=== PATIENT | male | born 1945 | race Caucasian/White ===

== ENCOUNTER 2018-07-04 22:16 | Emergency (ER) | payer MEDICARE ==
[~2018-07-04] VITALS: Ht 180.3 cm; Wt 113.4 kg
[~2018-07-04 22:16] MED LIST: ALPR0.5T6 PO; DULO60CA6 PO; HYDR-2761 PO; LOSA100T14 PO; NIAC50TA3 PO; OMEG300C PO; TEST1.25 TD; TRAZ150T49 PO; UBID10CA5 PO; WARF-31 PO
[2018-07-04] MEDS ORDERED: IV NORMAL SALINE 1000ML BAG 1,000 ML IV ONE (23:45)
[2018-07-04 23:47] LABS: BASO # 0.1 x10^3/uL (0.0-0.2); BASO % 1 % (0-3); EOS # 0.2 x10^3/uL (0.0-0.7); EOS % 3 % (0-3); HEMATOCRIT 43.9 % (39.0-53.0); HEMOGLOBIN 14.5 g/dL (13.0-17.5); LYMPH # 1.9 x10^3/uL (1.0-4.8); LYMPH % 31 % (24-48); MEAN CORPUSCULAR HEMOGLOBIN 33 pg (25-35); MEAN CORPUSCULAR HGB CONC 33 g/dL (31-37); MEAN CORPUSCULAR VOLUME 100 fL (79-100); MONO # 0.7 x10^3/uL (0.0-1.1); MONO % 10 % (0-9); NEUT # 3.4 x10^3uL (1.8-7.7); NEUT % 55 % (31-73); PLATELET COUNT 330 x10^3/uL (140-400); RED CELL DISTRIBUTION WIDTH 13.8 % (11.5-14.5); WHITE BLOOD COUNT 6.3 x10^3/uL (4.0-11.0)
[2018-07-04 23:50] LABS: AMPHETAMINE/METHAMPHETAMINE NEG (NEG); BARBITURATES NEG (NEG); BENZODIAZEPINES POS (NEG); CANNABINOIDS NEG (NEG); COCAINE NEG (NEG); METHADONE NEG (NEG); OPIATES NEG (NEG); PHENCYCLIDINE NEG (NEG)
[2018-07-04 23:56] LABS: CALCIUM 9.4 mg/dL (8.5-10.1); CREATININE 1.2 mg/dL (0.7-1.3); GFR 59.7; POTASSIUM 3.8 mmol/L (3.5-5.1)
--- NOTE | 2018-07-04 23:56 | RAD ---
AP portable chest radiograph 07/04/2018 Clinical History: Chest pain. An AP erect portable digital radiograph of the chest was obtained. No previous studies are available for comparison. Surgical clips overlie the left upper quadrant of the abdomen. The cardiac silhouette is mildly enlarged. Atherosclerotic calcification of the thoracic aorta is seen. The thoracic aorta is mildly tortuous. Blunting of the left costophrenic angle is seen which likely reflects a small left pleural effusion. No acute pulmonary infiltrate is seen. No pleural effusion or pneumothorax is noted. Degenerative changes are seen involving the thoracic spine. IMPRESSION: Probable small left pleural effusion. No acute pulmonary infiltrate is seen. Electronically signed by: Adam Morgan MD (07/04/2018 11:53 PM) [facility]
[2018-07-05 00:02] LABS: ALBUMIN 3.8 g/dL (3.4-5.0); MAGNESIUM 1.6 mg/dL (1.8-2.4); TOTAL BILIRUBIN 0.8 mg/dL (0.2-1.0); TOTAL PROTEIN 7.5 g/dL (6.4-8.2)
--- NOTE | 2018-07-05 00:05 | RAD ---
PQRS Compliance statement: One or more of the following individualized dose reduction techniques were utilized for this examination: 1. Automated exposure control. 2. Adjustment of the mA and/or kV according to patient size. 3. Use of iterative reconstruction technique. Indication:Confusion and pain TECHNIQUE: CT head without IV contrast COMPARISON:None FINDINGS: No pathologic extra-axial or intra-axial fluid collection. Mild diffuse atrophy. The ventricles and basal cisterns are within normal limits. No acute intracranial bleed. No focal loss of balbuena-white differentiation. No suspicious calvarial lesion. Visualized paranasal sinuses and mastoid air cells are clear. IMPRESSION: No acute intracranial bleed or calvarial fracture. Indication:Confusion and pain TECHNIQUE: CT of the cervical spine without IV contrast with multiplanar reformats. COMPARISON:None FINDINGS: The cervical spine is in normal anatomic alignment. Atlantoaxial joint or is preserved with moderate degenerative changes. No compression deformity. Facet joints are in normal anatomic alignment. No acute fractures. Multilevel intervertebral disc space narrowing with endplate irregularities and small osteophyte formation. Noncontrast appearance of the neck soft tissue is within normal limits. Clear lung apices. IMPRESSION: No acute fractures. Mild multilevel degenerative disc disease with facet arthropathy. Electronically signed by: Siddhartha Silva DO (07/05/2018 12:02 AM) [facility]
--- NOTE | 2018-07-05 00:44 | PHYS DOC ---
Past Medical History Past Medical History: Anxiety, CAD, Depression, DVT, High Cholesterol, Prostatitis, Other Additional Past Medical Histor: BRAIN APNEA, BACK PAIN, EPIDURAL'S FOR BACK PAIN Past Surgical History: Cholecystectomy, Other Additional Past Surgical Histo: GASTRIC BYPASS 35 YEARS AGO, SINUS Alcohol Use: None Drug Use: None Adult General Chief Complaint Chief Complaint: NEURO SYMPTOMS/DEFICITS HPI HPI Patient is a 73 year old [f__sex] who presents with [] Review of Systems Review of Systems Constitutional: Denies fever or chills [] Eyes: Denies change in visual acuity, redness, or eye pain [] HENT: Denies nasal congestion or sore throat [] Respiratory: Denies cough or shortness of breath [] Cardiovascular: No additional information not addressed in HPI [] GI: Denies abdominal pain, nausea, vomiting, bloody stools or diarrhea [] : Denies dysuria or hematuria [] Musculoskeletal: Denies back pain or joint pain [] Integument: Denies rash or skin lesions [] Neurologic: Denies headache, focal weakness or sensory changes [] Endocrine: Denies polyuria or polydipsia [] All other systems were reviewed and found to be within normal limits, except as documented in this note. Current Medications Current Medications Current Medications Medications (Trade) Dose Ordered Sig/Swapna Start Time Stop Time Status Last Admin Dose Admin Sodium Chloride 1,000 ml @ 1,000 mls/hr 1X ONCE 07/04/18 23:45 07/05/18 00:44 07/05/18 00:30 1,000 MLS/HR Allergies Allergies Allergies Coded Allergies Type Severity Reaction Last Updated Verified Vinzhws-Ekb-Tha Reductase Inhibitor Adverse Reaction Unknown MUSCLE PAIN 07/10/13 Yes Physical Exam Physical Exam Constitutional: Well developed, well nourished, no acute distress, non-toxic appearance. [] HENT: Normocephalic, atraumatic, bilateral external ears normal, oropharynx moist, no oral exudates, nose normal. [] Eyes: PERRLA, EOMI, conjunctiva normal, no discharge. [] Neck: Normal range of motion, no tenderness, supple, no stridor. [] Cardiovascular:Heart rate regular rhythm, no murmur [] Lungs & Thorax: Bilateral breath sounds clear to auscultation [] Abdomen: Bowel sounds normal, soft, no tenderness, no masses, no pulsatile masses. [] Skin: Warm, dry, no erythema, no rash. [] Back: No tenderness, no CVA tenderness. [] Extremities: No tenderness, no cyanosis, no clubbing, ROM intact, no edema. [] Neurologic: Alert and oriented X 3, normal motor function, normal sensory function, no focal deficits noted. [] Psychologic: Affect normal, judgement normal, mood normal. [] Current Patient Data Vital Signs Vital Signs Date Time Temp Pulse Resp B/P (MAP) Pulse Ox O2 Delivery O2 Flow Rate FiO2 07/04/18 22:24 97.8 67 20 144/73 (96) 96 Room Air 97.8 Lab Values Laboratory Tests Test 07/04/18 22:50 07/04/18 23:26 White Blood Count 6.3 x10^3/uL (4.0-11.0) Red Blood Count 4.40 x10^6/uL (4.30-5.70) Hemoglobin 14.5 g/dL (13.0-17.5) Hematocrit 43.9 % (39.0-53.0) Mean Corpuscular Volume 100 fL (79-100) Mean Corpuscular Hemoglobin 33 pg (25-35) Mean Corpuscular Hemoglobin Concent 33 g/dL (31-37) Red Cell Distribution Width 13.8 % (11.5-14.5) Platelet Count 330 x10^3/uL (140-400) Neutrophils (%) (Auto) 55 % (31-73) Lymphocytes (%) (Auto) 31 % (24-48) Monocytes (%) (Auto) 10 % (0-9) H Eosinophils (%) (Auto) 3 % (0-3) Basophils (%) (Auto) 1 % (0-3) Neutrophils # (Auto) 3.4 x10^3uL (1.8-7.7) Lymphocytes # (Auto) 1.9 x10^3/uL (1.0-4.8) Monocytes # (Auto) 0.7 x10^3/uL (0.0-1.1) Eosinophils # (Auto) 0.2 x10^3/uL (0.0-0.7) Basophils # (Auto) 0.1 x10^3/uL (0.0-0.2) Sodium Level 139 mmol/L (136-145) Potassium Level 3.8 mmol/L (3.5-5.1) Chloride Level 100 mmol/L (98-107) Carbon Dioxide Level 24 mmol/L (21-32) Anion Gap 15 (6-14) H Blood Urea Nitrogen 14 mg/dL (8-26) Creatinine 1.2 mg/dL (0.7-1.3) Estimated GFR (Cockcroft-Gault) 59.7 BUN/Creatinine Ratio 12 (6-20) Glucose Level 105 mg/dL (70-99) H Lactic Acid Level 1.5 mmol/L (0.4-2.0) Calcium Level 9.4 mg/dL (8.5-10.1) Magnesium Level 1.6 mg/dL (1.8-2.4) L Total Bilirubin 0.8 mg/dL (0.2-1.0) Aspartate Amino Transferase (AST) 17 U/L (15-37) Alanine Aminotransferase (ALT) 18 U/L (16-63) Alkaline Phosphatase 126 U/L (46-116) H Creatine Kinase 82 U/L (39-308) Creatine Kinase MB (Mass) 0.6 ng/mL (0.0-3.6) Creatine Kinase MB Relative Index 0.7 % (0-4) Troponin I Quantitative < 0.017 ng/mL (0.000-0.055) Total Protein 7.5 g/dL (6.4-8.2) Albumin 3.8 g/dL (3.4-5.0) Albumin/Globulin Ratio 1.0 (1.0-1.7) Ethyl Alcohol Level < 10 mg/dL (0-10) Urine Opiates Screen Neg (NEG) Urine Methadone Screen Neg (NEG) Urine Barbiturates Neg (NEG) Urine Phencyclidine Screen Neg (NEG) Urine Amphetamine/Methamphetamine Neg (NEG) Urine Benzodiazepines Screen Pos (NEG) Urine Cocaine Screen Neg (NEG) Urine Cannabinoids Screen Neg (NEG) Urine Ethyl Alcohol Neg (NEG) Laboratory Tests 07/04/18 22:50 Laboratory Tests 07/04/18 22:50 EKG EKG @0008 Sinus bradycardia at 58bpm, NO ST elevation, QRS 78ms, QT/QTc 412/408ms Radiology/Procedures Radiology/Procedures PROCEDURE: CT HEAD AND CERVICAL SPINE WO PQRS Compliance statement: One or more of the following individualized dose reduction techniques were utilized for this examination: 1. Automated exposure control. 2. Adjustment of the mA and/or kV according to patient size. 3. Use of iterative reconstruction technique. Indication:Confusion and pain TECHNIQUE: CT head without IV contrast COMPARISON:None FINDINGS: No pathologic extra-axial or intra-axial fluid collection. Mild diffuse atrophy. The ventricles and basal cisterns are within normal limits. No acute intracranial bleed. No focal loss of balbuena-white differentiation. No suspicious calvarial lesion. Visualized paranasal sinuses and mastoid air cells are clear. IMPRESSION: No acute intracranial bleed or calvarial fracture. Indication:Confusion and pain TECHNIQUE: CT of the cervical spine without IV contrast with multiplanar reformats. COMPARISON:None FINDINGS: The cervical spine is in normal anatomic alignment. Atlantoaxial joint or is preserved with moderate degenerative changes. No compression deformity. Facet joints are in normal anatomic alignment. No acute fractures. Multilevel intervertebral disc space narrowing with endplate irregularities and small osteophyte formation. Noncontrast appearance of the neck soft tissue is within normal limits. Clear lung apices. IMPRESSION: No acute fractures. Mild multilevel degenerative disc disease with facet arthropathy. Electronically signed by: Siddhartha Silva DO (07/05/2018 12:02 AM) [facility] PROCEDURE: CHEST AP ONLY AP portable chest radiograph 07/04/2018 Clinical History: Chest pain. An AP erect portable digital radiograph of the chest was obtained. No previous studies are available for comparison. Surgical clips overlie the left upper quadrant of the abdomen. The cardiac silhouette is mildly enlarged. Atherosclerotic calcification of the thoracic aorta is seen. The thoracic aorta is mildly tortuous. Blunting of the left costophrenic angle is seen which likely reflects a small left pleural effusion. No acute pulmonary infiltrate is seen. No pleural effusion or pneumothorax is noted. Degenerative changes are seen involving the thoracic spine. IMPRESSION: Probable small left pleural effusion. No acute pulmonary infiltrate is seen. Electronically signed by: Adam Morgan MD (07/04/2018 11:53 PM) [facility] Course & Med Decision Making Course & Med Decision Making Pertinent Labs and Imaging studies reviewed. (See chart for details) [] Dragon Disclaimer Dragon Disclaimer This electronic medical record was generated, in whole or in part, using a voice recognition dictation system. Departure Departure Impression: Primary Impression: Intermittent confusion Disposition: HOME, SELF-CARE Condition: IMPROVED Referrals: RASHAD MACHADO (PCP) Patient Instructions: Confusion Additional Instructions: Please follow closely with your doctor. Return for any worsening of condition or for any other concerns. JODI SCHMIDT DO July 05, 2018 00:44
[2018-07-05 00:55] VITALS: BP 154/70
--- NOTE | 2018-07-05 06:08 | EKG ---
[facility] [address] [place] [address] Test Date: 2018-07-05 Test Time: 00:08:06 Pat Name: ELENA SIEGEL Department: Room: Gender: M [employer] Developer: : 1945 Requested By: JODI SCHMIDT Order Number: [id number] Reading MD: Measurements Intervals [place] Rate: 58 P: 0 MN: 272 QRS: -26 QRSD: 78 T: 34 QT: 412 QTc: 408 Interpretive Statements SINUS RHYTHM PROLONGED MN INTERVAL LEFTWARD AXIS CONSIDER LEFT VENTRICULAR HYPERTROPHY ABNORMAL ECG RI6.01 Unconfirmed report No previous ECG available for comparison
== END 2018-07-05 01:00 | disposition home or self-care (01) ==
LOC: ER 22:16
DX: R41.0 Disorientation, unspecified (principal); F32.9 Major depressive disorder, single episode, unspecified; F41.9 Anxiety disorder, unspecified; I25.10 Atherosclerotic heart disease of native coronary artery without angina pectoris; E78.00 Pure hypercholesterolemia, unspecified; Z86.718 Personal history of other venous thrombosis and embolism; Z91.041 Radiographic dye allergy status
CPT/HCPCS: 36415; 70450; 71045; 72125; 80053; 80307; 82553; 83605; 83735; 84484; 85025; 93005; 96360; 99285; G0480; J7030

== ENCOUNTER 2018-09-08 14:58 | Emergency (ER) | payer MEDICARE ==
[~2018-09-08] VITALS: Ht 182.9 cm; Wt 109.8 kg
[2018-09-08] MEDS ORDERED: IV NORMAL SALINE 1000ML BAG 1,000 ML IV ONE (16:30)
--- NOTE | 2018-09-08 16:35 | PHYS DOC ---
Past Medical History Past Medical History: Anxiety, CAD, Depression, DVT, High Cholesterol, Prostatitis, Other Additional Past Medical Histor: BRAIN APNEA, BACK PAIN, EPIDURAL'S FOR BACK PAIN (EDDIE FELIPE APRN) Past Surgical History: Cholecystectomy, Other Additional Past Surgical Histo: GASTRIC BYPASS 35 YEARS AGO, SINUS (EDDIE FELIPE APRN) Alcohol Use: None Drug Use: None (EDDIE FELIPE APRN) Adult General Chief Complaint Chief Complaint: CONSTIPATION HPI HPI Patient is a 73 year old [male] who presents with [generalized abdominal pain, loss of appetite. Patient reports she has not been ill need for the past 5 days. Reports he is unable drinking fluids, reports he will try to drink a little bit of fluid but then he feels nauseous and is unable to drink anything further. Reports he has not had an actual bowel movement for approximately one week. Reports he has had a little bit of soft watery stool on and off for the past few days. Reports he has a history of a morphine pump placement, over the past 3 weeks he has had an increased dosage of his morphine. States he doesn't history of prior small bowel obstruction as well as a history of a gastric bypass presents with 35 years ago.] (EDDIE FELIPE APRN) Review of Systems Review of Systems Constitutional: Denies fever or chills [] Respiratory: Denies cough or shortness of breath [] Cardiovascular: No additional information not addressed in HPI [] GI: Reports abdominal pain, nausea, no vomiting, bloody stools or diarrhea, reports no bowel movement for the past week. [] : Denies dysuria or hematuria does report his urine has been much more dark than usual [] Musculoskeletal: Denies back pain or joint pain [] Integument: Denies rash or skin lesions [] Neurologic: Denies headache, focal weakness or sensory changes [] Endocrine: Denies polyuria or polydipsia [] All other systems were reviewed and found to be within normal limits, except as documented in this note. (EDDIE FELIPE APRN) Current Medications Current Medications Current Medications Medications (Trade) Dose Ordered Sig/Swapna Start Time Stop Time Status Last Admin Dose Admin Info (CONTRAST GIVEN -- Rx MONITORING) 1 each PRN DAILY PRN 09/08/18 17:45 09/08/18 19:49 DC Iohexol (Omnipaque 300 Mg/ml) 60 ml 1X ONCE 09/08/18 17:45 09/08/18 17:46 DC 09/08/18 17:49 60 ML Metoclopramide HCl (Reglan Vial) 10 mg 1X ONCE 09/08/18 19:15 09/08/18 19:16 DC 09/08/18 19:23 10 MG Ondansetron HCl (Zofran) 4 mg 1X ONCE 09/08/18 16:45 09/08/18 16:46 DC 09/08/18 16:45 4 MG Sodium Chloride 1,000 ml @ 1,000 mls/hr 1X ONCE 09/08/18 16:30 09/08/18 17:29 DC 09/08/18 16:45 1,000 MLS/HR (VILMA CAVAZOS MD) Allergies Allergies Allergies Coded Allergies Type Severity Reaction Last Updated Verified No Known Medication Allergies Allergy Unknown 09/08/18 Yes Lzjszwi-Lxt-Pve Reductase Inhibitor Adverse Reaction Unknown MUSCLE PAIN 07/10/13 Yes (VILMA CAVAZOS MD) Physical Exam Physical Exam Constitutional: Well developed, well nourished, no acute distress, non-toxic appearance. [] Neck: Normal range of motion, no tenderness, supple, no stridor. [] Cardiovascular:Heart rate regular rhythm, no murmur [] Lungs & Thorax: Bilateral breath sounds clear to auscultation [] Abdomen: Bowel sounds diminished overall, higher pitch noted LUQ with normal pitch noted inferior, soft, no tenderness, no masses, no pulsatile masses. [] Skin: Warm, dry, no erythema, no rash. [] Back: No tenderness, no CVA tenderness. [] Extremities: No tenderness, no cyanosis, no clubbing, ROM intact, no edema. [] Neurologic: Alert and oriented X 3, normal motor function, normal sensory function, no focal deficits noted. [] Psychologic: Affect normal, judgement normal, mood normal. [] (EDDIE FELIPE APRN) Current Patient Data Vital Signs Vital Signs Date Time Temp Pulse Resp B/P (MAP) Pulse Ox O2 Delivery O2 Flow Rate FiO2 09/08/18 19:30 85 145/79 (101) 97 Room Air 09/08/18 18:50 18 09/08/18 16:06 97.6 97.6 (VILMA CAVAZOS MD) Lab Values Laboratory Tests Test 09/08/18 16:40 09/08/18 19:00 White Blood Count 7.7 x10^3/uL (4.0-11.0) Red Blood Count 5.01 x10^6/uL (4.30-5.70) Hemoglobin 16.7 g/dL (13.0-17.5) Hematocrit 49.0 % (39.0-53.0) Mean Corpuscular Volume 98 fL (79-100) Mean Corpuscular Hemoglobin 33 pg (25-35) Mean Corpuscular Hemoglobin Concent 34 g/dL (31-37) Red Cell Distribution Width 13.2 % (11.5-14.5) Platelet Count 392 x10^3/uL (140-400) Neutrophils (%) (Auto) 59 % (31-73) Lymphocytes (%) (Auto) 27 % (24-48) Monocytes (%) (Auto) 10 % (0-9) H Eosinophils (%) (Auto) 3 % (0-3) Basophils (%) (Auto) 1 % (0-3) Neutrophils # (Auto) 4.5 x10^3/uL (1.8-7.7) Lymphocytes # (Auto) 2.1 x10^3/uL (1.0-4.8) Monocytes # (Auto) 0.8 x10^3/uL (0.0-1.1) Eosinophils # (Auto) 0.3 x10^3/uL (0.0-0.7) Basophils # (Auto) 0.1 x10^3/uL (0.0-0.2) Sodium Level 136 mmol/L (136-145) Potassium Level 3.9 mmol/L (3.5-5.1) Chloride Level 99 mmol/L (98-107) Carbon Dioxide Level 22 mmol/L (21-32) Anion Gap 15 (6-14) H Blood Urea Nitrogen 12 mg/dL (8-26) Creatinine 1.3 mg/dL (0.7-1.3) Estimated GFR (Cockcroft-Gault) 54.4 BUN/Creatinine Ratio 9 (6-20) Glucose Level 113 mg/dL (70-99) H Calcium Level 9.8 mg/dL (8.5-10.1) Total Bilirubin 1.3 mg/dL (0.2-1.0) H Aspartate Amino Transferase (AST) 18 U/L (15-37) Alanine Aminotransferase (ALT) 21 U/L (16-63) Alkaline Phosphatase 149 U/L (46-116) H Troponin I Quantitative < 0.017 ng/mL (0.000-0.055) Total Protein 8.0 g/dL (6.4-8.2) Albumin 3.9 g/dL (3.4-5.0) Albumin/Globulin Ratio 1.0 (1.0-1.7) Urine Collection Type Unknown Urine Color Yellow Urine Clarity Clear Urine pH 5.5 Urine Specific [place] >=1.030 Urine Protein Negative mg/dL (NEG-TRACE) Urine Glucose (UA) Negative mg/dL (NEG) Urine Ketones (Stick) 15 mg/dL (NEG) Urine Blood Negative (NEG) Urine Nitrite Negative (NEG) Urine Bilirubin Small (NEG) Urine Urobilinogen Dipstick 1.0 mg/dL (0.2 mg/dL) Urine Leukocyte Esterase Negative (NEG) Urine RBC Occ /HPF (0-2) Urine WBC 0 /HPF (0-4) Urine Squamous Epithelial Cells Few /LPF Urine Bacteria 0 /HPF (0-FEW) Urine Hyaline Casts Moderate /HPF Urine Mucus Marked /LPF Laboratory Tests 09/08/18 16:40 Laboratory Tests 09/08/18 16:40 (VILMA CAVAZOS MD) Lab Values Laboratory Tests Test 09/08/18 16:40 09/08/18 19:00 White Blood Count 7.7 x10^3/uL (4.0-11.0) Red Blood Count 5.01 x10^6/uL (4.30-5.70) Hemoglobin 16.7 g/dL (13.0-17.5) Hematocrit 49.0 % (39.0-53.0) Mean Corpuscular Volume 98 fL (79-100) Mean Corpuscular Hemoglobin 33 pg (25-35) Mean Corpuscular Hemoglobin Concent 34 g/dL (31-37) Red Cell Distribution Width 13.2 % (11.5-14.5) Platelet Count 392 x10^3/uL (140-400) Neutrophils (%) (Auto) 59 % (31-73) Lymphocytes (%) (Auto) 27 % (24-48) Monocytes (%) (Auto) 10 % (0-9) H Eosinophils (%) (Auto) 3 % (0-3) Basophils (%) (Auto) 1 % (0-3) Neutrophils # (Auto) 4.5 x10^3/uL (1.8-7.7) Lymphocytes # (Auto) 2.1 x10^3/uL (1.0-4.8) Monocytes # (Auto) 0.8 x10^3/uL (0.0-1.1) Eosinophils # (Auto) 0.3 x10^3/uL (0.0-0.7) Basophils # (Auto) 0.1 x10^3/uL (0.0-0.2) Sodium Level 136 mmol/L (136-145) Potassium Level 3.9 mmol/L (3.5-5.1) Chloride Level 99 mmol/L (98-107) Carbon Dioxide Level 22 mmol/L (21-32) Anion Gap 15 (6-14) H Blood Urea Nitrogen 12 mg/dL (8-26) Creatinine 1.3 mg/dL (0.7-1.3) Estimated GFR (Cockcroft-Gault) 54.4 BUN/Creatinine Ratio 9 (6-20) Glucose Level 113 mg/dL (70-99) H Calcium Level 9.8 mg/dL (8.5-10.1) Total Bilirubin 1.3 mg/dL (0.2-1.0) H Aspartate Amino Transferase (AST) 18 U/L (15-37) Alanine Aminotransferase (ALT) 21 U/L (16-63) Alkaline Phosphatase 149 U/L (46-116) H Troponin I Quantitative < 0.017 ng/mL (0.000-0.055) Total Protein 8.0 g/dL (6.4-8.2) Albumin 3.9 g/dL (3.4-5.0) Albumin/Globulin Ratio 1.0 (1.0-1.7) Urine Collection Type Unknown Urine Color Yellow Urine Clarity Clear Urine pH 5.5 Urine Specific [place] >=1.030 Urine Protein Negative mg/dL (NEG-TRACE) Urine Glucose (UA) Negative mg/dL (NEG) Urine Ketones (Stick) 15 mg/dL (NEG) Urine Blood Negative (NEG) Urine Nitrite Negative (NEG) Urine Bilirubin Small (NEG) Urine Urobilinogen Dipstick 1.0 mg/dL (0.2 mg/dL) Urine Leukocyte Esterase Negative (NEG) Urine RBC Occ /HPF (0-2) Urine WBC 0 /HPF (0-4) Urine Squamous Epithelial Cells Few /LPF Urine Bacteria 0 /HPF (0-FEW) Urine Hyaline Casts Moderate /HPF Urine Mucus Marked /LPF Laboratory Tests 09/08/18 16:40 Laboratory Tests 09/08/18 16:40 (EDDIE FELIPE APRN) EKG EKG [] (EDDIE FELIPE APRN) Radiology/Procedures Radiology/Procedures FINDINGS: Lung windows through the visualized portions of the bases reveal mild atelectasis. Coronary atherosclerotic calcifications are noted. The left hemidiaphragm is moderately elevated. Bone windows reveal no suspicious lesions. 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 A left flank generator has 2 leads in the presacral space. A right flank pain pump has its catheter in the central canal superior to the margin of the [id number]. There are changes of gastric bypass. The excluded portion of the stomach is separate from the remaining gastric pouch and communicates with the afferent limb. The efferent limb is mildly distended with gas without evidence of obstruction. The gallbladder and spleen are surgically absent. There is recurrent splenic tissue in the left upper quadrant. The left adrenal gland is mostly calcified. The right is unremarkable. The liver is unremarkable. Bilateral renal cysts measure up to 4.1 cm on the left. There are no pathologically enlarged lymph nodes. There is a stent within the distal inferior vena cava. Additional stents extend through the iliac veins bilaterally, and into the common femoral vein on the left. No occlusion is identified. 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 The superior mesenteric artery and inferior mesenteric artery are patent. Sigmoid diverticulosis is mild. There is no acute inflammation. The appendix is not inflamed. IMPRESSION: 1. Status post gastric bypass as above. No evidence of obstruction. No clear acute process is identified. 2. 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 *One or more of the following individualized dose reduction techniques were utilized for this examination: 1. Automated exposure control. 2. Adjustment of the mA and/or kV according to patient size. 3. Use of iterative reconstruction technique. Electronically signed by: Destiny Turcios MD (09/08/2018 6:30 PM) [facility] [] (EDDIE FELIPE APRN) Course & Med Decision Making Course & Med Decision Making Pertinent Labs and Imaging studies reviewed. (See chart for details) [Discussed lab findings without any acute findings today, discussed lab results without abnormalities. Patient does report he feels better but still continues to have a little bit of nausea this time. States he does not want to stay in hospital states he would much rather go home and follow-up with his primary care provider. Macario Moran additional dose of nausea medicine, Reglan, at this time prior to discharge and discharge him with follow-up with PCP tomorrow. Patient agreeable with plan] (EDDIE FELIPE APRN) Course & Med Decision Making Staff Physician Addendum: I was working in the ER during the course of this patient's visit. I was available for consultation as needed, but I was not directly involved in the care of this patient. (VILMA CAVAZOS MD) Dragon Disclaimer Dragon Disclaimer This electronic medical record was generated, in whole or in part, using a voice recognition dictation system. (EDDIE FELIPE APRN) Departure Departure Impression: Primary Impression: Nausea Additional Impression: Abdominal pain Disposition: 01 HOME, SELF-CARE Condition: GOOD Referrals: RASHAD MACHADO (PCP) Patient Instructions: Abdominal Pain (Nonspecific) Additional Instructions: As we discussed, your labs and imaging were without any significant findings today. There was no sign of bowel obstruction noted. Continue taking your home medications, continued to try to eat, small portions at a time follow-up with your primary care provider Problem Qualifiers Additional Impression: Abdominal pain Abdominal location: upper abdomen, unspecified Qualified Codes: R10.10 - Upper abdominal pain, unspecified EDDIE FELIPE APRN Sep 08, 2018 16:35 VILMA CAVAZOS MD Sep 09, 2018 21:46
[2018-09-08] MEDS ORDERED: ONDANSETRON PF 4 MG/2 ML VIAL. IV ONE (16:45)
[2018-09-08 16:51] LABS: BASO # 0.1 x10^3/uL (0.0-0.2); BASO % 1 % (0-3); EOS # 0.3 x10^3/uL (0.0-0.7); EOS % 3 % (0-3); HEMOGLOBIN 16.7 g/dL (13.0-17.5); LYMPH # 2.1 x10^3/uL (1.0-4.8); LYMPH % 27 % (24-48); MEAN CORPUSCULAR HEMOGLOBIN 33 pg (25-35); MEAN CORPUSCULAR HGB CONC 34 g/dL (31-37); MEAN CORPUSCULAR VOLUME 98 fL (79-100); MONO # 0.8 x10^3/uL (0.0-1.1); MONO % 10 % (0-9); NEUT # 4.5 x10^3/uL (1.8-7.7); NEUT % 59 % (31-73); PLATELET COUNT 392 x10^3/uL (140-400); RED BLOOD COUNT 5.01 x10^6/uL (4.30-5.70); RED CELL DISTRIBUTION WIDTH 13.2 % (11.5-14.5); WHITE BLOOD COUNT 7.7 x10^3/uL (4.0-11.0)
[2018-09-08 17:02] LABS: CALCIUM 9.8 mg/dL (8.5-10.1); CREATININE 1.3 mg/dL (0.7-1.3); GFR 54.4; POTASSIUM 3.9 mmol/L (3.5-5.1)
[2018-09-08 17:07] LABS: ALBUMIN 3.9 g/dL (3.4-5.0); TOTAL BILIRUBIN 1.3 mg/dL (0.2-1.0)
[2018-09-08] MEDS ORDERED: CONTRAST GIVEN. MC PRN (17:45)
[2018-09-08] MEDS ORDERED: IOHEXOL 300 MG/ML 100ML VIAL. IV ONE (17:45)
--- NOTE | 2018-09-08 18:33 | RAD ---
EXAM: CT ABDOMEN/PELVIS WITH CONTRAST. HISTORY: Abdominal pain. TECHNIQUE: Computed tomography of the abdomen and pelvis was performed after the intravenous administration of iodinated contrast. COMPARISON: None. FINDINGS: Lung windows through the visualized portions of the bases reveal mild atelectasis. Coronary atherosclerotic calcifications are noted. The left hemidiaphragm is moderately elevated. Bone windows reveal no suspicious lesions. 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 A left flank generator has 2 leads in the presacral space. A right flank pain pump has its catheter in the central canal superior to the margin of the ajktc-ws-[id number]. There are changes of gastric bypass. The excluded portion of the stomach is separate from the remaining gastric pouch and communicates with the afferent limb. The efferent limb is mildly distended with gas without evidence of obstruction. The gallbladder and spleen are surgically absent. There is recurrent splenic tissue in the left upper quadrant. The left adrenal gland is mostly calcified. The right is unremarkable. The liver is unremarkable. Bilateral renal cysts measure up to 4.1 cm on the left. There are no pathologically enlarged lymph nodes. There is a stent within the distal inferior vena cava. Additional stents extend through the iliac veins bilaterally, and into the common femoral vein on the left. No occlusion is identified. 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 The superior mesenteric artery and inferior mesenteric artery are patent. Sigmoid diverticulosis is mild. There is no acute inflammation. The appendix is not inflamed. IMPRESSION: 1. Status post gastric bypass as above. No evidence of obstruction. No clear acute process is identified. 2. 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 *One or more of the following individualized dose reduction techniques were utilized for this examination: 1. Automated exposure control. 2. Adjustment of the mA and/or kV according to patient size. 3. Use of iterative reconstruction technique. Electronically signed by: Destiny Turcios MD (09/08/2018 6:30 PM) [facility]
[2018-09-08 19:07] LABS: BILIRUBIN,URINE SMALL (NEG); CLARITY,URINE CLEAR; COLOR,URINE YELLOW; NITRITE,URINE NEGATIVE (NEG); PH,URINE 5.5; PROTEIN,URINE NEGATIVE (NEG-TRACE)
[2018-09-08 19:14] LABS: HYALINE CASTS, URINE MODERATE /HPF; SQUAMOUS EPITHELIAL CELL,UR FEW /LPF
[2018-09-08 19:15] LABS: BACTERIA,URINE 0 /HPF (0-FEW); RBC,URINE OCC /HPF (0-2); WBC,URINE 0 /HPF (0-4)
[2018-09-08] MEDS ORDERED: METOCLOPRAMIDE HCL 10 MG/2 ML VIAL. IV ONE (19:15)
[2018-09-08 19:30] VITALS: BP 145/79
== END 2018-09-08 19:49 | disposition home or self-care (01) ==
LOC: ER 14:58
DX: R11.0 Nausea (principal); R10.12 Left upper quadrant pain; R63.0 Anorexia; F41.9 Anxiety disorder, unspecified; I25.10 Atherosclerotic heart disease of native coronary artery without angina pectoris; F32.9 Major depressive disorder, single episode, unspecified; E78.00 Pure hypercholesterolemia, unspecified; Z86.718 Personal history of other venous thrombosis and embolism; Z90.49 Acquired absence of other specified parts of digestive tract; Z88.8 Allergy status to other drugs, medicaments and biological substances
CPT/HCPCS: 36415; 74177; 80053; 81001; 84484; 85025; 96374; 96375; 99285; J2405; J2765; J7030; Q9967

== ENCOUNTER 2019-04-28 14:34 | Emergency (ER) | payer MEDICARE ==
[~2019-04-28] VITALS: Ht 182.9 cm; Wt 107.3 kg
--- NOTE | 2019-04-28 15:03 | PHYS DOC ---
Past Medical History Past Medical History: Anxiety, CAD, Depression, DVT, High Cholesterol, Prostatitis, Other Additional Past Medical Histor: BRAIN APNEA, BACK PAIN, EPIDURAL'S FOR BACK PAIN Past Surgical History: Cholecystectomy, Other Additional Past Surgical Histo: GASTRIC BYPASS 35 YEARS AGO, SINUS Smoking Status: Never Smoker Alcohol Use: None Drug Use: None Adult General Chief Complaint Chief Complaint: MECHANICAL FALL HPI HPI Patient is a 73 year old male who presents with states this morning he was in the master bathroom and lifted the toilet seat up and was carrying to use the toilet when he suddenly had a quick loss of consciousness. He states it was very quick and he has been doing this several times. He states he has had many falls and this month alone. Patient denies chest pain or shortness of breath. He denies hitting his head or headache or dizziness. He states he has no he feels normal, before this happens and has no symptoms prior or after. He states that his only reason for coming today is that he has left rib pain. He denies chest pain, shortness of air, dizziness before the fall or after, headache before the fall or after, vision changes before or after, numbness or tingling, confusion, анна pain, nausea, vomiting, diarrhea, fever, recent illness, cough. He states he does see a cargo and container inspector since he has been having these syncopal episodes and they state his heart is okay. He sees a Dr. Vargas who is his cargo and container inspector. Patient currently rates his pain a 9 out of 10. He states he has not taken anything. He does have a history of DVT of which he is on Eliquis currently, high cholesterol, depression, anxiety, CAD, brain apnea, chronic back pain of which he goes to pain clinic and has a pain pump, cholecystectomy, gastric bypass. Review of Systems Review of Systems Musculoskeletal: Left rib pain. Denies back pain or joint pain [] Neurologic: LOC. Denies headache, focal weakness or sensory changes [] All other systems were reviewed and found to be within normal limits, except as documented in this note. Allergies Allergies Allergies Coded Allergies Type Severity Reaction Last Updated Verified Dtjhhyc-Xzj-Icd Reductase Inhibitor Adverse Reaction Unknown MUSCLE PAIN 07/10/13 Yes Physical Exam Physical Exam Constitutional: Well developed, well nourished, no acute distress, non-toxic appearance. [] HENT: Normocephalic, atraumatic, bilateral external ears normal, oropharynx moist, no oral exudates, nose normal. [] Eyes: PERRLA, EOMI, conjunctiva normal, no discharge. [] Neck: Normal range of motion, no tenderness, supple, no stridor. [] Cardiovascular:Heart rate regular rhythm, no murmur [] Lungs & Thorax: Bilateral breath sounds clear to auscultation. Left rib tender ness. [] Abdomen: Bowel sounds normal, soft, no tenderness, no masses, no pulsatile masses. [] Skin: Warm, dry, no erythema, no rash. [] Back: No tenderness, no CVA tenderness. [] Extremities: No tenderness, no cyanosis, no clubbing, ROM intact, no edema. [] Neurologic: Alert and oriented X 3, normal motor function, normal sensory function, no focal deficits noted. [] Psychologic: Affect normal, judgement normal, mood normal. [] Current Patient Data Vital Signs Vital Signs Date Time Temp Pulse Resp B/P (MAP) Pulse Ox O2 Delivery O2 Flow Rate FiO2 04/28/19 14:39 97.6 117 20 140/85 (103) 96 Room Air 97.6 Lab Values Laboratory Tests Test 04/28/19 15:06 White Blood Count 7.8 x10^3/uL (4.0-11.0) Red Blood Count 4.64 x10^6/uL (4.30-5.70) Hemoglobin 14.8 g/dL (13.0-17.5) Hematocrit 44.4 % (39.0-53.0) Mean Corpuscular Volume 96 fL (79-100) Mean Corpuscular Hemoglobin 32 pg (25-35) Mean Corpuscular Hemoglobin Concent 33 g/dL (31-37) Red Cell Distribution Width 14.6 % (11.5-14.5) H Platelet Count 433 x10^3/uL (140-400) H Neutrophils (%) (Auto) 69 % (31-73) Lymphocytes (%) (Auto) 18 % (24-48) L Monocytes (%) (Auto) 9 % (0-9) Eosinophils (%) (Auto) 3 % (0-3) Basophils (%) (Auto) 1 % (0-3) Neutrophils # (Auto) 5.4 x10^3/uL (1.8-7.7) Lymphocytes # (Auto) 1.4 x10^3/uL (1.0-4.8) Monocytes # (Auto) 0.7 x10^3/uL (0.0-1.1) Eosinophils # (Auto) 0.2 x10^3/uL (0.0-0.7) Basophils # (Auto) 0.1 x10^3/uL (0.0-0.2) Sodium Level 140 mmol/L (136-145) Potassium Level 3.5 mmol/L (3.5-5.1) Chloride Level 103 mmol/L (98-107) Carbon Dioxide Level 27 mmol/L (21-32) Anion Gap 10 (6-14) Blood Urea Nitrogen 18 mg/dL (8-26) Creatinine 1.1 mg/dL (0.7-1.3) Estimated GFR (Cockcroft-Gault) 66.0 BUN/Creatinine Ratio 16 (6-20) Glucose Level 118 mg/dL (70-99) H Calcium Level 9.3 mg/dL (8.5-10.1) Total Bilirubin 0.5 mg/dL (0.2-1.0) Aspartate Amino Transferase (AST) 18 U/L (15-37) Alanine Aminotransferase (ALT) 20 U/L (16-63) Alkaline Phosphatase 132 U/L (46-116) H Troponin I Quantitative < 0.017 ng/mL (0.000-0.055) Total Protein 7.3 g/dL (6.4-8.2) Albumin 3.3 g/dL (3.4-5.0) L Albumin/Globulin Ratio 0.8 (1.0-1.7) L Laboratory Tests 04/28/19 15:06 Laboratory Tests 04/28/19 15:06 EKG EKG SINUS RHYTHM AND NO STEMI[] Interpretation Time: [address] STONE Radiology/Procedures Radiology/Procedures [] Impressions: [facility] [address] [place] [address] IMAGING REPORT Signed PATIENT: ELENA SIEGEL ACCOUNT: [id number] : 1945 LOCATION: ER AGE: 73 SEX: M EXAM STATUS: REG ER ORD. PHYSICIAN: JUDIT ISABEL APRN REASON: loc, fall PROCEDURE: CT HEAD AND CERVICAL SPINE WO Examination: CT HEAD AND CERVICAL SPINE WO History: Fall, loss of consciousness, pain Comparison/Correlation: 07/04/2018 CT head and cervical spine without contrast Findings: Axial images of the head and cervical spine were obtained without contrast. Sagittal and coronal reformatted images of the cervical spine were provided. Atrophy is present. No intracranial hemorrhage, midline shift, or mass effect. Cavernous carotid calcification is noted. No depressed skull fracture. Atlantoaxial joint degenerative remodeling is present. Moderate C5-6 and C6-7 disc space narrowing is present. Central disc protrusion at C4-5 is present. Disc osteophyte complex is noted at the left paracentral C5-6 region with severe neural foraminal narrowing and suggestion of compression of the nerve root. Soft tissues are unremarkable. Bony encroachment on the left C3-4 neural foramen is also evident. Significant stenosis evident. Impression: No intracranial hemorrhage. No fracture or malalignment. Advanced degenerative changes. PQRS Compliance Statement: One or more of the following individualized dose reduction techniques were utilized for this examination: 1. Automated exposure control 2. Adjustment of the mA and/or kV according to patient size 3. Use of iterative reconstruction technique Electronically signed by: Ganga Andrade MD (04/28/2019 3:44 PM) [id number] DICTATED and SIGNED BY: GANGA ANDRADE MD DATE: 04/28/19 1544 [facility] [address] [place] [address] IMAGING REPORT Signed PATIENT: ELENA SIEGEL ACCOUNT: [id number] : 1945 LOCATION: ER AGE: 73 SEX: M EXAM STATUS: REG ER ORD. PHYSICIAN: JUDIT ISABEL APRN REASON: fall left sided rib pain PROCEDURE: CHEST PA & LATERAL 2 views of the chest, 5 views left RIBS 04/28/2019 INDICATION: Fall, pain. COMPARISON STUDY: Chest radiograph July 04, 2018 FINDINGS: No pneumothorax or definitive effusion is seen. Blunting of left costophrenic angle stable in the interim from prior study likely scarring. Minimally displaced fractures of the left lateral seventh and eighth ribs are seen. Possible nondisplaced fractures involving the ninth and 10th ribs noted. IMPRESSION: 1. Minimally displaced fractures of the left lateral seventh and eighth ribs, possible nondisplaced fractures of the ninth and 10th ribs. 2. No other acute cardiopulmonary process is seen Electronically signed by: Shin Kim MD (04/28/2019 4:02 PM) [id number] DICTATED and SIGNED BY: SHIN KIM MD DATE: 04/28/19 160 Course & Med Decision Making Course & Med Decision Making Pertinent Labs and Imaging studies reviewed. (See chart for details) Alert and oriented. Moves all extremities normally and equally. No tenderness to his spine with palpation. Full range of motion of his neck. Speaks in full clear sentences. Denies any pleuritic pain. Tenderness over the lower left ribs with palpation of there is no bruising or crepitus felt. Lung sounds are clear bilaterally. Patient is tachycardic but vital signs otherwise normal. 96% on room air. Skin pink warm and dry. Patient's face and head are atraumatic. He denies hitting his head or any neck pain or back pain. Patient is able to get up out of the wheelchair and walk to the chair and sit down in the room. Speaks in full clear sentences. Follows all commands appropriately. Answers all questions appropriately. CT head and C-spine were negative for any findings. Blood work is normal. Vital signs remain within normal limits. IMPRESSION: 1. Minimally displaced fractures of the left lateral seventh and eighth ribs, possible nondisplaced fractures of the ninth and 10th ribs. 2. No other acute cardiopulmonary process is seen Patient is given a incentive spirometer and taught by RN. Patient is taught to not wrap anything around his rib cage. Patient to follow-up with his primary care provider and his cargo and container inspector as he has been for the syncopal episodes and now for his fractured ribs. I have spoken to Dr. Lazo concerning this patient on whether he should admit the patient or not do to him having a history of COPD and DVTs and high cholesterol but with his pretty much benign exam other than the rib fractures and pain he states this and the patient home. He states that since the patient is already seeing a cargo and container inspector and this is not the first episode and that he has been seen a cargo and container inspector and his primary care doctors for these episodes that he is okay to go home. Patient is already on a morphine pain pump therefore I am not adding any pain medication on top of that. I told him he could take Tylenol or he called the pain clinic and let them know the occurrence. Patient is discharged home. Patient remains stable. [] Dragon Disclaimer Dragon Disclaimer This electronic medical record was generated, in whole or in part, using a voice recognition dictation system. NIHSS Stroke Scale NIH Stroke Scale: NIH Stroke Scale Response (Comments) Value Level of Consciousness: 0 Alert/Responsive 0 LOC Questions: 0 Answers both correctly 0 LOC Commands: 0 Performs both tasks 0 Best Gaze: 0 Normal 0 Visual: 0 No visual loss 0 Facial Palsy: 0 Normal, symmetrical 0 Motor - Left Arm 0 No drift 0 Motor - Right Arm 0 No drift 0 Motor - Left Leg 0 No drift 0 Motor: Right Leg 0 No drift 0 Limb Ataxia: 0 Absent 0 Sensory: 0 No loss 0 Best Language: 0 Normal 0 Dysathria: 0 Normal 0 Extinction and Inattention: 0 Normal 0 Total 0 Departure Departure Impression: Primary Impression: Left rib fracture Additional Impression: Syncopal episodes Disposition: 01 HOME, SELF-CARE Condition: STABLE Referrals: RASHAD MCAHADO (PCP) JANN BENNETT II, MD Patient Instructions: Rib Fracture Additional Instructions: Follow up with primary care provider and orthopedic. Do not wrap anything around your rib cage as this will only cause you to be at risk for pneumonia. Use incentive spirometer as educated. Continue using the pain medications you have at home from your pain clinic. Problem Qualifiers Primary Impression: Left rib fracture Encounter type: initial encounter Rib fracture type: multiple ribs Fracture type: closed Qualified Codes: S22.42XA - Multiple fractures of ribs, left side, initial encounter for closed fracture Additional Impression: Syncopal episodes Syncope type: unspecified Qualified Codes: R55 - Syncope and collapse JUDIT ISABEL APRN Apr 28, 2019 15:03
[2019-04-28 15:20] LABS: BASO # 0.1 x10^3/uL (0.0-0.2); BASO % 1 % (0-3); EOS # 0.2 x10^3/uL (0.0-0.7); EOS % 3 % (0-3); HEMATOCRIT 44.4 % (39.0-53.0); HEMOGLOBIN 14.8 g/dL (13.0-17.5); LYMPH # 1.4 x10^3/uL (1.0-4.8); LYMPH % 18 % (24-48); MEAN CORPUSCULAR HEMOGLOBIN 32 pg (25-35); MEAN CORPUSCULAR HGB CONC 33 g/dL (31-37); MEAN CORPUSCULAR VOLUME 96 fL (79-100); MONO # 0.7 x10^3/uL (0.0-1.1); MONO % 9 % (0-9); NEUT # 5.4 x10^3/uL (1.8-7.7); NEUT % 69 % (31-73); PLATELET COUNT 433 x10^3/uL (140-400); RED BLOOD COUNT 4.64 x10^6/uL (4.30-5.70); RED CELL DISTRIBUTION WIDTH 14.6 % (11.5-14.5); WHITE BLOOD COUNT 7.8 x10^3/uL (4.0-11.0)
[2019-04-28 15:28] LABS: CALCIUM 9.3 mg/dL (8.5-10.1); CREATININE 1.1 mg/dL (0.7-1.3); POTASSIUM 3.5 mmol/L (3.5-5.1)
[2019-04-28 15:34] LABS: ALBUMIN 3.3 g/dL (3.4-5.0); ALBUMIN/GLOBULIN RATIO 0.8 (1.0-1.7); TOTAL BILIRUBIN 0.5 mg/dL (0.2-1.0); TOTAL PROTEIN 7.3 g/dL (6.4-8.2)
--- NOTE | 2019-04-28 15:47 | RAD ---
Examination: CT HEAD AND CERVICAL SPINE WO History: Fall, loss of consciousness, pain Comparison/Correlation: 07/04/2018 CT head and cervical spine without contrast Findings: Axial images of the head and cervical spine were obtained without contrast. Sagittal and coronal reformatted images of the cervical spine were provided. Atrophy is present. No intracranial hemorrhage, midline shift, or mass effect. Cavernous carotid calcification is noted. No depressed skull fracture. Atlantoaxial joint degenerative remodeling is present. Moderate C5-6 and C6-7 disc space narrowing is present. Central disc protrusion at C4-5 is present. Disc osteophyte complex is noted at the left paracentral C5-6 region with severe neural foraminal narrowing and suggestion of compression of the nerve root. Soft tissues are unremarkable. Bony encroachment on the left C3-4 neural foramen is also evident. Significant stenosis evident. Impression: No intracranial hemorrhage. No fracture or malalignment. Advanced degenerative changes. PQRS Compliance Statement: One or more of the following individualized dose reduction techniques were utilized for this examination: 1. Automated exposure control 2. Adjustment of the mA and/or kV according to patient size 3. Use of iterative reconstruction technique Electronically signed by: Ganga Davenport MD (04/28/2019 3:44 PM) [email or web address]
--- NOTE | 2019-04-28 16:05 | RAD ---
2 views of the chest, 5 views left RIBS 04/28/2019 INDICATION: Fall, pain. COMPARISON STUDY: Chest radiograph July 04, 2018 FINDINGS: No pneumothorax or definitive effusion is seen. Blunting of left costophrenic angle stable in the interim from prior study likely scarring. Minimally displaced fractures of the left lateral seventh and eighth ribs are seen. Possible nondisplaced fractures involving the ninth and 10th ribs noted. IMPRESSION: 1. Minimally displaced fractures of the left lateral seventh and eighth ribs, possible nondisplaced fractures of the ninth and 10th ribs. 2. No other acute cardiopulmonary process is seen Electronically signed by: Shin Thomas MD (04/28/2019 4:02 PM) [id number]
[2019-04-28 16:22] VITALS: BP 151/82
--- NOTE | 2019-04-29 05:35 | EKG ---
[facility] [address] [place] [address] Test Date: 2019-04-28 Test Time: 15:04:09 Pat Name: ELENA SIEGEL Department: Room: Gender: M Dependency Counselor: : 1945 Requested By: JUDIT ISABEL Order Number: [id number] Reading MD: Measurements Intervals [place] Rate: 83 P: 26 NC: 254 QRS: -20 QRSD: 76 T: 101 QT: 336 QTc: 400 Interpretive Statements SINUS RHYTHM PROLONGED NC INTERVAL LEFTWARD AXIS QRS(T) CONTOUR ABNORMALITY CONSIDER ANTEROSEPTAL MYOCARDIAL DAMAGE T ABNORMALITY IN HIGH LATERAL LEADS ABNORMAL ECG No previous ECG available for comparison
== END 2019-04-28 16:54 | disposition home or self-care (01) ==
LOC: ER 14:34
DX: S22.42XA Multiple fractures of ribs, left side, initial encounter for closed fracture (principal); R55 Syncope and collapse; E78.00 Pure hypercholesterolemia, unspecified; I25.10 Atherosclerotic heart disease of native coronary artery without angina pectoris; R51 Headache; M54.2 Cervicalgia; Z91.041 Radiographic dye allergy status; W18.39XA Other fall on same level, initial encounter; Y93.89 Activity, other specified; Y92.89 Other specified places as the place of occurrence of the external cause; Y99.8 Other external cause status
CPT/HCPCS: 36415; 70450; 71046; 71100; 72125; 80053; 84484; 85025; 93005; 99285-25

== ENCOUNTER 2019-08-03 18:01 | Emergency (ER) | payer MEDICARE ==
[~2019-08-03] VITALS: Ht 182.9 cm; Wt 113.6 kg
--- NOTE | 2019-08-03 18:55 | PHYS DOC ---
Past Medical History Past Medical History: Anxiety, CAD, Depression, Diabetes-Type II, DVT, High Cholesterol, Prostatitis, Other Additional Past Medical Histor: BRAIN APNEA,BACK PAIN,EPIDURAL'S FOR BACK PAIN,CHRONIC PAIN Past Surgical History: Cholecystectomy, Other Additional Past Surgical Histo: GASTRIC BYPASS,SINUS/MORPHINE PAIN PUMP/STIMULATOR Smoking Status: Never Smoker Alcohol Use: None Drug Use: None General Adult EDM: Chief Complaint: NAUSEA/VOMITING/DIARRHA HPI: HPI: Patient is a 74 year [id number] male past medical history of DVTs diabetes hyperlipidemia chronic leg pain with neuropathy neurostimulator and morphine pump in place presents with a chief complaint of weakness. Patient states weakness is everywhere. Patient states last night he fell out of bed 4 times. States when he tries to stand he cannot stand. Patient states he needs assistance when moving from his bed to his motorized scooter. Patient denies any headache denies any chest pain shortness of breath or abdominal pain. On exam patient has no focal weakness. Patient sensations are intact. Patient arrived by private vehicle. He was assisted into his car by his and his son. Patient has no complaints of pain. Review of Systems: Review of Systems: Constitutional: Denies fever or chills. [] Eyes: Denies change in visual acuity. [] HENT: Denies nasal congestion or sore throat. [] Respiratory: Denies cough or shortness of breath. [] Cardiovascular: Denies chest pain or edema. [] GI: Denies abdominal pain, nausea, vomiting, bloody stools or diarrhea. [] : Denies dysuria. [] Musculoskeletal: Denies back pain or joint pain. [] Integument: Denies rash. [] Neurologic: Denies headache, positive generalized weakness Endocrine: Denies polyuria or polydipsia. [] Lymphatic: Denies swollen glands. [] Psychiatric: Denies depression or anxiety. [] Heart Score: Risk Factors: Risk Factors: DM, Current or recent (<one month) smoker, HTN, HLP, family history of CAD, obesity. Risk Scores: Score 0 - 3: 2.5% MACE over next 6 weeks - Discharge Home Score 4 - 6: 20.3% MACE over next 6 weeks - Admit for Clinical Observation Score 7 - 10: 72.7% MACE over next 6 weeks - Early Invasive Strategies Allergies: Allergies: Allergies Coded Allergies Type Severity Reaction Last Updated Verified Edetjvn-Dxw-Dym Reductase Inhibitor Adverse Reaction Unknown MUSCLE PAIN 07/10/13 Yes Physical Exam: PE: Constitutional: Well developed, well nourished, no acute distress, non-toxic appearance. [] HENT: Normocephalic, atraumatic, bilateral external ears normal, oropharynx moist, no oral exudates, nose normal. [] Eyes: PERRLA, EOMI, conjunctiva normal, no discharge. [] Neck: Normal range of motion, no tenderness, supple, no stridor. [] Cardiovascular:Heart rate regular rhythm, no murmur [] Lungs & Thorax: Bilateral breath sounds clear to auscultation [] Abdomen: Bowel sounds normal, soft, no tenderness, no masses, no pulsatile masses. [] Skin: Warm, dry, no erythema, no rash. [] Back: No tenderness, no CVA tenderness. [] Extremities: No tenderness, no cyanosis, no clubbing, ROM intact, no edema. [] Neurologic: Alert and oriented X 3, normal motor function, normal sensory function, no focal deficits noted. [] Psychologic: Affect normal, judgement normal, mood normal. [] Current Patient Data: Labs: Laboratory Tests Test 08/03/19 18:39 Glucose (Fingerstick) 137 mg/dL (70-99) H EKG: EKG: ekg timve 1846 rate 94 supreventricular rhythm no stemi No ST elevation No ST depression [] Radiology/Procedures: Radiology/Procedures: [] Course & Med Decision Making: Course & Med Decision Making Pertinent Labs and Imaging studies reviewed. (See chart for details) []Work up reviewed. Labs- Creatine 1.6-- treated with IV fluids. UA - + LE treated with rocephing. CT head negative. Initial plan to admit to hospital. Patient feels better and would like to go home. Patient ambulated with steady gait. Rx keflex. Advised to increase PO fluids. Return to ER if symptom return. Must follow up with PCP regarding creatine. Errol Disclaimer: Errol Disclaimer: This electronic medical record was generated, in whole or in part, using a voice recognition dictation system. Departure Departure Impression: Primary Impression: UTI (urinary tract infection) Additional Impressions: Generalized weakness Renal insufficiency Disposition: HOME, SELF-CARE Condition: STABLE Referrals: JEANNETTE,RASHAD J (PCP) Patient Instructions: Dehydration, Adult, Urinary Tract Infection Scripts Cephalexin (KEFLEX) 500 Mg Capsule 500 MG PO QID for 10 Days, #40 CAP Prov: SERVANDO RAMÍREZ DO 08/03/19 Justicifation of Admission Dx: Justifications for Admission: Justification of Admission Dx: N/A SERVANDO RAMÍREZ DO Aug 03, 2019 18:55
[2019-08-03 19:03] LABS: BASO # 0.1 x10^3/uL (0.0-0.2); BASO % 1 % (0-3); EOS % 0 % (0-3); HEMATOCRIT 45.1 % (39.0-53.0); HEMOGLOBIN 15.2 g/dL (13.0-17.5); LYMPH # 1.5 x10^3/uL (1.0-4.8); LYMPH % 12 % (24-48); MEAN CORPUSCULAR HEMOGLOBIN 32 pg (25-35); MEAN CORPUSCULAR HGB CONC 34 g/dL (31-37); MEAN CORPUSCULAR VOLUME 95 fL (79-100); MONO # 1.4 x10^3/uL (0.0-1.1); MONO % 11 % (0-9); NEUT # 9.3 x10^3/uL (1.8-7.7); NEUT % 76 % (31-73); PLATELET COUNT 325 x10^3/uL (140-400); RED BLOOD COUNT 4.74 x10^6/uL (4.30-5.70); RED CELL DISTRIBUTION WIDTH 14.2 % (11.5-14.5); WHITE BLOOD COUNT 12.4 x10^3/uL (4.0-11.0)
[2019-08-03 19:21] LABS: CREATININE 1.6 mg/dL (0.7-1.3); GFR 42.7; POTASSIUM 3.5 mmol/L (3.5-5.1)
[2019-08-03 19:27] LABS: ALBUMIN 3.8 g/dL (3.4-5.0); ALBUMIN/GLOBULIN RATIO 0.9 (1.0-1.7); TOTAL BILIRUBIN 1.6 mg/dL (0.2-1.0)
--- NOTE | 2019-08-03 20:08 | RAD ---
INDICATION: Reason: dizziness weakness / Spl. Instructions: / History: COMPARISON: April 28, 2019 TECHNIQUE: Axial CT images obtained through the head without intravenous contrast. One or more of the following individualized dose reduction techniques were utilized for this examination: 1. Automated exposure control; 2. Adjustment of the mA and/or kV according to patient size; 3. Use of iterative reconstruction technique. FINDINGS: No intracranial hemorrhage. No midline shift. Basal cisterns patents. Ventricles and sulci are globally prominent. No acute osseous abnormality. Orbits and paranasal sinuses unremarkable. Scattered foci of low attenuation within the white matter. IMPRESSION: 1. No acute intracranial hemorrhage. 2. Scattered regions of low attenuation within the white matter. Non-specific in nature but frequently secondary to chronic small vessel ischemic disease. 3. Prominence of ventricles and sulci which is frequently secondary to age related volume loss. Electronically signed by: Sharan Guajardo MD (08/03/2019 8:04 PM) [id number]
[2019-08-03 20:11] LABS: BILIRUBIN,URINE NEGATIVE (NEG); CLARITY,URINE CLOUDY; COLOR,URINE YELLOW; NITRITE,URINE NEGATIVE (NEG); PROTEIN,URINE 30 mg/dL (NEG-TRACE)
[2019-08-03 20:21] LABS: BACTERIA,URINE MANY /HPF (0-FEW); WBC,URINE TNTC /HPF (0-4)
[2019-08-03] MEDS ORDERED: cefTRIAXone IV Push 1 GM VIAL. IVP ONE (20:30)
[2019-08-03] MEDS ORDERED: IV NORMAL SALINE 1000ML BAG 1,000 ML IV ONE (20:30)
[2019-08-03] MEDS ORDERED: CEPH-264 PO (21:36)
[2019-08-03 22:00] VITALS: BP 142/77
--- NOTE | 2019-08-05 10:29 | EKG ---
[facility] [address] [place] [address] Test Date: 2019-08-03 Test Time: 18:46:17 Pat Name: ELENA SIEGEL Department: Room: Gender: M Travel Writer: : 1945 Requested By: SERVANDO RAMÍREZ Order Number: [id number] Reading MD: Measurements Intervals [place] Rate: 94 P: -90 FL: 158 QRS: -34 QRSD: 76 T: 80 QT: 324 QTc: 410 Interpretive Statements SUPRAVENTRICULAR RHYTHM ABNORMAL LEFT AXIS DEVIATION LEFT ANTERIOR FASCICULAR BLOCK CONSIDER LEFT VENTRICULAR HYPERTROPHY QRS(T) CONTOUR ABNORMALITY CONSIDER ANTEROSEPTAL MYOCARDIAL DAMAGE T ABNORMALITY IN HIGH LATERAL LEADS ABNORMAL ECG RI6.02 No previous ECG available for comparison
== END 2019-08-03 22:00 | disposition home or self-care (01) ==
LOC: ER 18:01
DX: N39.0 Urinary tract infection, site not specified (principal); R53.1 Weakness; N28.9 Disorder of kidney and ureter, unspecified; E11.40 Type 2 diabetes mellitus with diabetic neuropathy, unspecified; E78.00 Pure hypercholesterolemia, unspecified; E11.9 Type 2 diabetes mellitus without complications; G89.29 Other chronic pain; I25.10 Atherosclerotic heart disease of native coronary artery without angina pectoris; Z86.718 Personal history of other venous thrombosis and embolism; Z90.49 Acquired absence of other specified parts of digestive tract; Z91.041 Radiographic dye allergy status
CPT/HCPCS: 36415; 70450; 80053; 81001; 82962; 84484; 85025; 87086; 96374; 99285; J0696; J7030; 93005